=== PATIENT | female | born 1970 | race Caucasian/White ===

== ENCOUNTER → 2022-08-01 | Day surgery (SDC) | payer OTHER ==
[2022-07-28 16:13] LABS: Basophils # (auto) 0 10 ^3/uL (0-0.2); Basophils % (auto) 0.6 % (0.0-2.0); Eosinophils # (auto) 0 10 ^3/uL (0-0.8); Eosinophils % (auto) 0.2 % (0.0-7.0); Hemoglobin 14.7 g/dL (12.2-16.2); Lymphocytes % (auto) 17.5 % (10.0-50.0); Mean Corpuscular Hemoglobin 32.4 pg (28.0-32.0); Mean Corpuscular Hgb Conc. 33.5 g/dL (32.0-36.0); Mean Corpuscular Volume 96.9 fL (80.0-100.0); Monocytes # (auto) 0.4 10 ^3/uL (0-1.3); Monocytes % (auto) 7.3 % (0.0-12.0); Neutrophils # (auto) 4.2 10 ^3/uL (1.6-8.6); Neutrophils % (auto) 74.4 % (37.0-80.0); Red Blood Cells 4.55 10^6/uL (4.0-5.20); Red Cell Distribution Width 13.1 % (11.8-14.3); White Blood Cell 5.6 10^3/uL (4.4-10.8)
[2022-07-28 16:34] LABS: INR 0.97 (0.9-1.15); Partial Thromboplastin Time 21.8 sec (24.6-33.4)
[2022-07-28 16:39] LABS: BUN/Creatinine Ratio 20.2 (10.0-20.0); Calcium 9.2 mg/dL (8.5-10.1); Potassium 4.1 mmol/L (3.5-5.1)
[~2022-08-01] VITALS: Ht 167.6 cm; Wt 65.8 kg
[~2022-08-01] MED LIST: ARIP2TAB PO; BUSP15TA60 PO; CETI-175 PO; DULO60CA41 PO; ELET20TA2 PO; FURO20TA3 PO; LISI-706 PO; METO-6 PO; OXYC325T14 PO; POTA10TA51 PO; SPIR25TA PO
== END | disposition home or self-care (01) ==
LOC: CATH 08:21
PROVIDERS: ATTEND Internal Medicine
DX: R06.02 Shortness of breath (principal); I50.20 Unspecified systolic (congestive) heart failure; I11.0 Hypertensive heart disease with heart failure
CPT/HCPCS: 36415; 76937; 80048; 85025; 85610; 85730; J7030